=== PATIENT | female | born 1950 | race Caucasian/White ===

== ENCOUNTER 2016-06-19 08:33 | Day surgery (SDC) | payer BC ==
--- NOTE | ~2016-06-19 | EGD ---
EGD REPORT [facility] [address] [address] NAME: Shonna GOMEZ : [birth year] STATUS : REG [facility]#: [id number] AGE: 66 ADM/REG DATE : 06/19/16 MR#: [id number] REPORT SERV DATE: 06/19/16 DICTATED BY: RUBI PRINCE DATE: 06/19/16 REPORT STATUS : Draft TRANSCRIBED BY: [facility] DATE: 06/19/16 Endoscopy Center Patient Name: Shonna Gomez Date of : 1950 Attending MD: RUBI PRINCE MD Procedure Date No Time: 06/19/2016 Procedure: Upper GI endoscopy Indications: Abnormal UGI series Referring MD: ALIVIA QUINONEZ MD Medicines: Monitored Anesthesia Care Complications: No immediate complications. Procedure: Pre-Anesthesia Assessment: - ASA Grade Assessment: III - A patient with severe systemic disease. After obtaining informed consent, the endoscope was passed under direct vision. Throughout the procedure, the patient's blood pressure, pulse, and oxygen saturations were monitored continuously. The GIF [id number] [id number] was introduced through the mouth, and advanced to the second part of duodenum. The upper GI endoscopy was accomplished without difficulty. The patient tolerated the procedure well. Findings: No gross lesions were noted in the entire esophagus. Localized moderately erythematous mucosa without bleeding was found in the gastric antrum. Biopsies were taken with a cold forceps for histology. The cardia and gastric fundus were normal on retroflexion. The duodenal bulb and 2nd part of the duodenum were normal. Impression: - No gross lesions in esophagus. - Erythematous mucosa in the antrum. Biopsied. - Normal duodenal bulb and 2nd part of the duodenum. Recommendation: - Await pathology results. Procedure Code(s): --- Professional --- 85899, Esophagogastroduodenoscopy, flexible, transoral; with biopsy, single or multiple Diagnosis Code(s): --- Professional --- K31.9, Disease of stomach and duodenum, unspecified R93.3, Abnormal findings on diagnostic imaging of other parts of digestive tract EGD REPORT [facility] [address] [id number] NAME: Shonna GOMEZ Ankita : [birth year] STATUS : REG [facility] PAT#: [id number] AGE: 66 ADM/REG DATE : 06/19/16 MR#: [id number] REPORT SERV DATE: 06/19/16 DICTATED BY: RUBI PRINCE DATE: 06/19/16 REPORT STATUS : Draft TRANSCRIBED BY: [employer] DATE: 06/19/16 CPT copyright 2013 [employer]. All rights reserved. The codes documented in this report are preliminary and upon supervisor garage review may be revised to meet current compliance requirements. RUBI PRINCE MD 06/19/2016 10:30 AM This report has been signed electronically. Number of Addenda: 0 Note Initiated On: 06/19/2016 10:13 AM Scope Withdrawal Time 0 hours 0 minutes 0 seconds [id number] [id number]
--- NOTE | ~2016-06-19 | EGD ---
EGD REPORT [facility] [address] [address] NAME: Shonna GOMEZ : [birth year] STATUS : REG [facility]#: [id number] AGE: 66 ADM/REG DATE : 06/19/16 MR#: [id number] REPORT SERV DATE: 06/19/16 DICTATED BY: DATE: REPORT STATUS : Draft TRANSCRIBED BY: [employer] DATE: 06/19/16 Endoscopy Center Patient Name: Shonna Gomez Date of : 1950 Attending MD: RUBI PRINCE MD Procedure Date No Time: 06/19/2016 Procedure: Colonoscopy Indications: Screening for colorectal malignant neoplasm Referring MD: ALIVIA QUINONEZ MD Medicines: Monitored Anesthesia Care Complications: No immediate complications. Procedure: Pre-Anesthesia Assessment: - ASA Grade Assessment: III - A patient with severe systemic disease. After I obtained informed consent, the scope was passed under direct vision. Throughout the procedure, the patient's blood pressure, pulse, and oxygen saturations were monitored continuously. The PCF [id number] was introduced through the anus and advanced to the cecum, identified by appendiceal orifice and ileocecal valve. The colonoscopy was performed without difficulty. The patient tolerated the procedure well. The quality of the bowel preparation was adequate. Findings: The digital rectal exam was normal. Pertinent negatives include no palpable rectal lesions. Hemorrhoids were found during retroflexion and were mild. Two sessile polyps were found in the transverse colon. The polyps were 3 to 4 mm in size. These polyps were removed with a cold biopsy forceps. Resection and retrieval were complete. Hemorrhoids were found during retroflexion and were mild. Impression: - Hemorrhoids. - Two 3 to 4 mm polyps in the transverse colon. Resected and retrieved. - Hemorrhoids. Recommendation: - Patient has a contact number available for emergencies. The signs and symptoms of potential delayed complications were discussed with the patient. Return to normal activities tomorrow. Written discharge instructions were provided to the patient. - Regular diet. - Continue present medications. EGD REPORT [facility] [address] [place] [address]. [place] [address] NAME: CARLOZShonna JEMAL Ankita : [birth year] STATUS : REG [facility]#: [id number] AGE: 66 ADM/REG DATE : 06/19/16 MR#: [id number] REPORT SERV DATE: 06/19/16 DICTATED BY: DATE: REPORT STATUS : Draft TRANSCRIBED BY: [employer] DATE: 06/19/16 - Await pathology results. - Repeat colonoscopy in 5-10 years for surveillance based on pathology results. - Return to GI clinic PRN. Procedure Code(s): --- Professional --- 37139, Colonoscopy, flexible, proximal to splenic flexure; with biopsy, single or multiple Diagnosis Code(s): --- Professional --- K64.9, Unspecified hemorrhoids D12.3, Benign neoplasm of transverse colon Z12.11, Encounter for screening for malignant neoplasm of colon CPT copyright 2013 [employer]. All rights reserved. The codes documented in this report are preliminary and upon certified medical coder review may be revised to meet current compliance requirements. RUBI PRINCE MD 06/19/2016 10:49 AM This report has been signed electronically. Number of Addenda: 0 Note Initiated On: 06/19/2016 10:05 AM Scope Withdrawal Time 0 hours 11 minutes 30 seconds [id number] [place] [address]
[~2016-06-19 08:33] MED LIST: ACT300 PO; P10 PO; VITAMIN D31000 UNIT PO
== END 2016-06-19 23:59 | disposition home health service (06) ==
LOC: DMU 08:33
PROVIDERS: Internal Medicine Gastroenterology
PROC: 0DB68ZX Excision of Stomach, Via Natural or Artificial Opening Endoscopic, Diagnostic (ICD-10-PCS; principal; 2016-06-19 10:00)
PROC: 0DBL8ZX Excision of Transverse Colon, Via Natural or Artificial Opening Endoscopic, Diagnostic (ICD-10-PCS; 2016-06-19 10:00)
DX: Z12.11 Encounter for screening for malignant neoplasm of colon (principal); D12.3 Benign neoplasm of transverse colon; K29.50 Unspecified chronic gastritis without bleeding; K64.9 Unspecified hemorrhoids; Z88.0 Allergy status to penicillin; Z88.2 Allergy status to sulfonamides; Z88.8 Allergy status to other drugs, medicaments and biological substances
CPT/HCPCS: 88305